=== PATIENT | female | born 1945 | race Caucasian/White ===

== ENCOUNTER 2019-03-16 14:45 | Outpatient (CLI) | payer MEDICARE | END 2019-03-16 23:59 | disposition home or self-care (01) | LOC: RAD 14:45 | PROVIDERS: ATTEND Family Medicine | DX: R49.0 Dysphonia (principal) | CPT/HCPCS: 71046 ==

== ENCOUNTER 2019-03-22 14:02 | Outpatient (CLI) | payer MEDICARE | END 2019-03-22 23:59 | disposition home or self-care (01) | LOC: CFH 14:02 | PROVIDERS: ATTEND Family Medicine | DX: N64.4 Mastodynia (principal) | CPT/HCPCS: 76642; 77066; G0279 ==

== ENCOUNTER 2019-06-23 18:58 | Outpatient (CLI) | payer MEDICARE | END 2019-06-23 23:59 | disposition home or self-care (01) | LOC: RAD 18:58 | PROVIDERS: ATTEND Family Medicine | DX: R05 Cough (principal) | CPT/HCPCS: 71046 ==

== ENCOUNTER 2020-02-12 13:53 | Inpatient (IN) | payer MEDICARE ==
[~2020-02-12] VITALS: Ht 162.6 cm; Wt 81.3 kg
[2020-02-12 14:59] LABS: BASOPHILS # (AUTO) 0.01 x10^3/uL (0-0.1); BASOPHILS % (AUTO) 0 % (0-1); EOSINOPHILS % (AUTO) 0 % (1-7); LYMPHOCYTES # (AUTO) 0.64 x10^3/uL (1-3.4); LYMPHOCYTES % (AUTO) 12 % (22-44); MD NO; MEAN CORPUSCULAR HEMOGLOBIN 31.1 pg (27.0-34.8); MEAN CORPUSCULAR HGB CONC 33.6 g/dL (32.4-35.8); MEAN PLATELET VOLUME 9.6 fL (7.4-10.4); MONOCYTES # (AUTO) 0.63 x10^3/uL (0.2-0.8); MONOCYTES % (AUTO) 12 % (2-9); NEUTROPHILS # (AUTO) 4.16 x10^3/uL (1.8-6.8); NEUTROPHILS % (AUTO) 76 % (42-75); PLATELET COUNT 161 x10^3/uL (130-400); RED BLOOD COUNT 4.52 x10^6/uL (3.82-5.3); RED CELL DISTRIBUTION WIDTH 13.6 % (9.6-15.2)
[2020-02-12 15:10] LABS: ALANINE AMINOTRANSFERASE 33 U/L (12-78); ALBUMIN 3.1 g/dL (3.4-5.0); ANION GAP 7 mmol/L (5-15); CALCIUM 8.1 mg/dL (8.5-10.1); CHLORIDE 102 mmol/L (98-107); CREATININE 0.79 mg/dL (0.55-1.02)
[2020-02-12 15:16] LABS: ALKALINE PHOSPHATASE 80 U/L (45-117); BILIRUBIN,TOTAL 1.3 mg/dL (0.2-1.0); TOTAL PROTEIN 7.1 g/dL (6.4-8.2)
[2020-02-12] MEDS ORDERED: ACETAMINOPHEN 325 MG TABLET PO ONE (15:30)
[2020-02-12] MEDS ORDERED: PLEASE ENTER HEIGHT AND WEIGHT MC SCH (15:30)
[2020-02-12 16:36] LABS: D-DIMER (DIC) 1.87 ug/mlFEU (0.00-0.52); PROTIME 11.3 Seconds (9.6-11.5)
[2020-02-12] MEDS ORDERED: CEFTRIAXONE PMX 1GM/50ML 50 ML IVPB ONE (19:00)
[2020-02-12] MEDS ORDERED: AZITHROMYCIN 500 MG in SODIUM CHLORIDE 0.9% 250 ML IVPB ONE (19:00)
[2020-02-12] MEDS ORDERED: CEFTRIAXONE PMX 1GM/50ML 50 ML ONE (19:00)
[2020-02-12] MEDS ORDERED: SODIUM CHLORIDE FLUSH 10ML SYR IVF PRN (19:00)
[2020-02-12] MEDS ORDERED: ACETAMINOPHEN 325 MG TABLET ONE (19:26)
[2020-02-12] MEDS ORDERED: KETOROLAC 30 MG/1 ML IV PRN (19:30)
[2020-02-12] MEDS ORDERED: GUAIFENESIN/DM 200-20MG, 10ML UDC PO PRN (19:30)
[2020-02-12] MEDS ORDERED: HYDROcodone/APAP 5/325 TABLET PO PRN (19:30)
[2020-02-12] MEDS ORDERED: ASA/APAP/ CAFFEINE TABLET PO PRN (19:30)
[2020-02-12] MEDS ORDERED: DOCUSATE 100 MG CAPSULE PO PRN (19:30)
[2020-02-12] MEDS ORDERED: METHOCARBAMOL 500 MG TABLET PO PRN (19:30)
[2020-02-12] MEDS ORDERED: hydrALAzine 20 MG/ML, 1ML IVPush PRN (19:30)
[2020-02-12] MEDS: BENZONATATE 100 MG CAPSULE PO SCH (21:00)
[2020-02-12] MEDS ORDERED: FAMOTIDINE 20 MG TABLET PO SCH (21:00)
[2020-02-12] MEDS: FAMOTIDINE 20 MG/2 ML IVPush SCH (21:00)
[2020-02-12] MEDS: SODIUM CHLORIDE 0.9% 1,000 ML IV SCH (21:28)
--- NOTE | 2020-02-12 22:02 | NUR ---
report from JERE florence
[2020-02-12] MEDS ORDERED: ENOXAPARIN 40 MG/0.4 ML ONE (22:36)
--- NOTE | 2020-02-12 23:00 | NUR ---
PT PROVIDED DIMITRI BROTH AND JUICE PER HER REQUEST
[2020-02-12] MEDS: ENOXAPARIN 40 MG/0.4 ML SQ SCH (23:22)
[2020-02-12] MEDS ORDERED: OMNIPAQUE 350 MG/ML, 100ML BOTTLE ONE (23:28)
--- NOTE | 2020-02-12 23:30 | NUR ---
NC O2 REDUCED TO 2L AND SATS READING 97-98% ON 2L
--- NOTE | 2020-02-13 00:55 | NUR ---
PT AMBULATROY TO BATHROOM WITH STEADY GAIT FOR BM AND URINATION
--- NOTE | 2020-02-13 00:56 | NUR ---
PT RESTING ON HOSPITAL BED. DENIES PAIN AND STATES NO NEEDS AT THIS TIME.
--- NOTE | 2020-02-13 04:34 | NUR ---
PT PROVIDED ICE CHIPS PER PT REQUEST.
[2020-02-13 05:32] LABS: BASOPHILS # (AUTO) 0.02 x10^3/uL (0-0.1); BASOPHILS % (AUTO) 0 % (0-1); EOSINOPHILS % (AUTO) 0 % (1-7); LYMPHOCYTES # (AUTO) 1.23 x10^3/uL (1-3.4); LYMPHOCYTES % (AUTO) 22 % (22-44); MD NO; MEAN CORPUSCULAR HEMOGLOBIN 31.2 pg (27.0-34.8); MEAN PLATELET VOLUME 9.9 fL (7.4-10.4); MONOCYTES # (AUTO) 0.68 x10^3/uL (0.2-0.8); MONOCYTES % (AUTO) 12 % (2-9); NEUTROPHILS # (AUTO) 3.56 x10^3/uL (1.8-6.8); NEUTROPHILS % (AUTO) 65 % (42-75); PLATELET COUNT 139 x10^3/uL (130-400); RED BLOOD COUNT 4.52 x10^6/uL (3.82-5.3); RED CELL DISTRIBUTION WIDTH 13.6 % (9.6-15.2)
[2020-02-13 05:45] LABS: CHLORIDE 106 mmol/L (98-107)
[2020-02-13 05:51] LABS: ALANINE AMINOTRANSFERASE 34 U/L (12-78); ALBUMIN 2.8 g/dL (3.4-5.0); ALKALINE PHOSPHATASE 75 U/L (45-117); ANION GAP 5 mmol/L (5-15); BILIRUBIN,TOTAL 0.9 mg/dL (0.2-1.0); CREATININE 0.67 mg/dL (0.55-1.02); TOTAL PROTEIN 6.6 g/dL (6.4-8.2)
--- NOTE | 2020-02-13 06:45 | NUR ---
PT RESTING ON HOSPTIAL BED. RESPIRATIONS EVEN AND UNLABORED. EYES CLOSED.
--- NOTE | 2020-02-13 07:28 | NUR ---
PT OOB VOIDED W/O DIFFICULTY AT BEDSIDE COMMODE. TO ROOM SINK AND WASHED FACE AND HANDS. RTD TO BED W/O DIFFICULTY. SP02 DOWN TO 84% ON RA. NC 2L PLACED WITH EFFECT, SP02 96%. PROVIDED PT WITH CLEAN PAIR OF UNDERWEAR. ALL MONITORS IN PLACE AND CALL LIGHT W/I REACH. FLUIDS AT BEDSIDE. BREAKFAST ORDERED. NAD NOTED. PT C/O RIGHT KNEE PAIN 10/10 2/2 RECENT RIGHT KNEE MINISCUS REPAIR IN JANUARY.
[2020-02-13 08:21] LABS: MICROSCOPIC INDICATED
[2020-02-13] MEDS ORDERED: ASCORBIC ACID 500 MG TABLET PO SCH (09:00)
[2020-02-13] MEDS ORDERED: BENZONATATE 100 MG CAPSULE ONE ×2 (09:02→15:53)
[2020-02-13] MEDS ORDERED: FAMOTIDINE 20 MG/2 ML ONE (09:03)
[2020-02-13] MEDS: MULTIVITAMIN 1 TABLET PO SCH (09:45)
[2020-02-13] MEDS: BENZONATATE 100 MG CAPSULE PO SCH ×3 (09:45→20:33)
[2020-02-13] MEDS: ZINC SULFATE 220 MG CAPSULE PO SCH (09:45)
[2020-02-13] MEDS: SODIUM CHLORIDE 0.9% 1,000 ML IV SCH ×2 (09:46→15:14)
[2020-02-13] MEDS: FAMOTIDINE 20 MG/2 ML IVPush SCH ×3 (09:46→20:32)
--- NOTE | 2020-02-13 09:51 | NUR ---
[facility] [phone]
[2020-02-13] MEDS: CHOLECALCIFEROL 1,000 UNIT TABLET PO SCH (10:06)
--- NOTE | 2020-02-13 10:08 | NUR ---
BRI RPT TO JERE OCAMPO. PT AWARE THAT HER DAUGHTER HAS CALLED AND WOULDLIKE HER TO CALL HER. PT HAS HER CELL PHONE W/I REACH
[2020-02-13] MEDS ORDERED: FAMOTIDINE 10 MG TAB ONE (10:36)
[2020-02-13] MEDS ORDERED: ACETAMINOPHEN 325 MG TABLET ONE (11:36)
[2020-02-13] MEDS ORDERED: ONDANSETRON 2MG/ML, 2ML ONE (11:47)
[2020-02-13] MEDS: ONDANSETRON 2MG/ML, 2ML IVPush PRN (11:54)
[2020-02-13] MEDS: ACETAMINOPHEN 325 MG TABLET PO PRN ×2 (11:55→20:32)
--- NOTE | 2020-02-13 11:58 | NUR ---
nauseated/confused-=medicated per emar. will continue to monitor closely
--- NOTE | 2020-02-13 13:06 | NUR ---
Up to commode-diarrhea Remains febrile, and slightly less confused Otherwise VSS no blankets, ice chips provided
--- NOTE | 2020-02-13 13:16 | NUR ---
spoke to provider- he would like to defer fmotrin admin, to add blood cultures
[2020-02-13] MEDS ORDERED: CEFTRIAXONE PMX 1GM/50ML 50 ML ONE (14:22)
[2020-02-13] MEDS: CEFTRIAXONE PMX 1GM/50ML 50 ML IV SCH (14:42)
--- NOTE | 2020-02-13 14:42 | NUR ---
With reassessment: Patient looks quite a bit better. Eating lunnch now oriened and pleaseant Repeat temp 99.9 Medicated per emaalex w/ joel douglas to follow
[2020-02-13] MEDS: AZITHROMYCIN 500 MG in SODIUM CHLORIDE 0.9% 250 ML IV SCH (14:46)
[2020-02-13] MEDS ORDERED: GUAIFENESIN 200 MG TABLET ONE (15:47)
[2020-02-13] MEDS: ASCORBIC ACID 500 MG TABLET PO SCH ×2 (15:55→20:32)
[2020-02-13] MEDS ORDERED: ASCORBIC ACID 250 MG TAB PO SCH (16:00)
--- NOTE | 2020-02-13 16:01 | NUR ---
Report received from JERE Cisneros.
--- NOTE | 2020-02-13 16:04 | NUR ---
bedside report to shannon juan
--- NOTE | 2020-02-13 17:09 | NUR ---
Pt states feeling the best that she has felt in the last two days. States being thankful for our ED staff.
--- NOTE | 2020-02-13 17:16 | NUR ---
Call to give report to ICU, waiting for call back
--- NOTE | 2020-02-13 18:04 | NUR ---
Report provided to JERE Kincaid ICU. Waiting for transport to Room 12.
[2020-02-13 18:53] VITALS: BP 145/65
[2020-02-13 19:59] VITALS: BP 175/78
[2020-02-13] MEDS: ENOXAPARIN 40 MG/0.4 ML SQ SCH (20:33)
[2020-02-13] MEDS ORDERED: FAMOTIDINE 20 MG TABLET PO SCH (21:00)
[2020-02-13 22:47] VITALS: BP 130/83
[2020-02-14] MEDS: SODIUM CHLORIDE 0.9% 1,000 ML IV SCH ×3 (01:35→21:14)
[2020-02-14 01:38] VITALS: BP 148/73
[2020-02-14 05:41] LABS: BASOPHILS # (AUTO) 0.03 x10^3/uL (0-0.1); BASOPHILS % (AUTO) 0 % (0-1); EOSINOPHILS % (AUTO) 0 % (1-7); LYMPHOCYTES % (AUTO) 10 % (22-44); MD NO; MEAN CORPUSCULAR HEMOGLOBIN 30.7 pg (27.0-34.8); MEAN CORPUSCULAR HGB CONC 32.5 g/dL (32.4-35.8); MEAN PLATELET VOLUME 9.8 fL (7.4-10.4); MONOCYTES # (AUTO) 0.67 x10^3/uL (0.2-0.8); MONOCYTES % (AUTO) 7 % (2-9); NEUTROPHILS # (AUTO) 7.49 x10^3/uL (1.8-6.8); NEUTROPHILS % (AUTO) 83 % (42-75); PLATELET COUNT 169 x10^3/uL (130-400); RED BLOOD COUNT 4.27 x10^6/uL (3.82-5.3); RED CELL DISTRIBUTION WIDTH 13.9 % (9.6-15.2)
[2020-02-14 05:50] LABS: ANION GAP 7 mmol/L (5-15); CALCIUM 8.2 mg/dL (8.5-10.1); CHLORIDE 108 mmol/L (98-107); CREATININE 0.71 mg/dL (0.55-1.02)
[2020-02-14] MEDS: ACETAMINOPHEN 325 MG TABLET PO PRN ×2 (06:25→18:00)
[2020-02-14 08:00] VITALS: BP 136/81
[2020-02-14] MEDS: MULTIVITAMIN 1 TABLET PO SCH (08:47)
[2020-02-14] MEDS: BENZONATATE 100 MG CAPSULE PO SCH ×3 (08:47→21:10)
[2020-02-14] MEDS: CHOLECALCIFEROL 1,000 UNIT TABLET PO SCH (08:47)
[2020-02-14] MEDS: ASCORBIC ACID 500 MG TABLET PO SCH ×3 (08:48→21:09)
[2020-02-14] MEDS: POTASSIUM CHLORIDE 20 MEQ TAB.ER.PRT PO SCH ×2 (08:48→18:00)
[2020-02-14] MEDS: ZINC SULFATE 220 MG CAPSULE PO SCH (08:51)
[2020-02-14] MEDS ORDERED: FAMOTIDINE 20 MG/2 ML IVPush PRN (11:30)
[2020-02-14 13:59] VITALS: BP 141/81
[2020-02-14] MEDS: CEFTRIAXONE PMX 1GM/50ML 50 ML IV SCH (14:21)
[2020-02-14] MEDS: AZITHROMYCIN 500 MG in SODIUM CHLORIDE 0.9% 250 ML IV SCH (15:09)
[2020-02-14 20:00] VITALS: BP 127/71
[2020-02-14] MEDS: FAMOTIDINE 10 MG TAB PO SCH (21:09)
[2020-02-14] MEDS: ENOXAPARIN 40 MG/0.4 ML SQ SCH (21:09)
[2020-02-15 02:00] VITALS: BP 146/78
[2020-02-15 07:36] LABS: BASOPHILS # (AUTO) 0.06 x10^3/uL (0-0.1); BASOPHILS % (AUTO) 1 % (0-1); EOSINOPHILS % (AUTO) 0 % (1-7); LYMPHOCYTES # (AUTO) 0.77 x10^3/uL (1-3.4); LYMPHOCYTES % (AUTO) 8 % (22-44); MD NO; MEAN CORPUSCULAR HEMOGLOBIN 30.2 pg (27.0-34.8); MEAN CORPUSCULAR HGB CONC 31.9 g/dL (32.4-35.8); MEAN PLATELET VOLUME 9.7 fL (7.4-10.4); MONOCYTES # (AUTO) 0.65 x10^3/uL (0.2-0.8); MONOCYTES % (AUTO) 6 % (2-9); NEUTROPHILS # (AUTO) 8.85 x10^3/uL (1.8-6.8); NEUTROPHILS % (AUTO) 86 % (42-75); PLATELET COUNT 195 x10^3/uL (130-400); RED BLOOD COUNT 4.61 x10^6/uL (3.82-5.3); RED CELL DISTRIBUTION WIDTH 13.9 % (9.6-15.2)
[2020-02-15 07:49] LABS: ANION GAP 6 mmol/L (5-15); CALCIUM 8.6 mg/dL (8.5-10.1); CHLORIDE 108 mmol/L (98-107); CREATININE 0.64 mg/dL (0.55-1.02)
[2020-02-15 08:02] VITALS: BP 157/77
[2020-02-15] MEDS: CHOLECALCIFEROL 1,000 UNIT TABLET PO SCH (08:07)
[2020-02-15] MEDS: ASCORBIC ACID 500 MG TABLET PO SCH ×3 (08:07→21:03)
[2020-02-15] MEDS: MULTIVITAMIN 1 TABLET PO SCH (08:07)
[2020-02-15] MEDS: DEXAMETHASONE 4 MG/ML, 1ML IVPush SCH (08:07)
[2020-02-15] MEDS: BENZONATATE 100 MG CAPSULE PO SCH ×3 (08:07→21:02)
[2020-02-15] MEDS: ZINC SULFATE 220 MG CAPSULE PO SCH (08:07)
[2020-02-15] MEDS: ENOXAPARIN 80 MG/0.8 ML SQ SCH ×2 (08:08→21:03)
[2020-02-15] MEDS: FUROSEMIDE 40 MG/4 ML IV SCH ×2 (10:38→16:49)
[2020-02-15] MEDS: LOPERAMIDE 2 MG CAPSULE PO PRN (11:38)
[2020-02-15] MEDS: CEFTRIAXONE PMX 1GM/50ML 50 ML IV SCH (13:58)
[2020-02-15 14:06] VITALS: BP 148/77
[2020-02-15] MEDS: AZITHROMYCIN 500 MG in SODIUM CHLORIDE 0.9% 250 ML IV SCH (15:02)
[2020-02-15] MEDS: POTASSIUM CHLORIDE 20 MEQ TAB.ER.PRT PO SCH (16:48)
[2020-02-15 20:00] VITALS: BP 147/78
[2020-02-15] MEDS: FAMOTIDINE 10 MG TAB PO SCH (21:03)
[2020-02-16 02:00] VITALS: BP 162/89
[2020-02-16 06:16] LABS: ANION GAP 8 mmol/L (5-15); CALCIUM 9.5 mg/dL (8.5-10.1); CHLORIDE 104 mmol/L (98-107); CREATININE 0.75 mg/dL (0.55-1.02)
[2020-02-16 06:18] LABS: BASOPHILS # (AUTO) 0.03 x10^3/uL (0-0.1); BASOPHILS % (AUTO) 0 % (0-1); EOSINOPHILS % (AUTO) 0 % (1-7); LYMPHOCYTES # (AUTO) 0.87 x10^3/uL (1-3.4); LYMPHOCYTES % (AUTO) 10 % (22-44); MD NO; MEAN CORPUSCULAR HEMOGLOBIN 33.3 pg (27.0-34.8); MEAN CORPUSCULAR HGB CONC 35.2 g/dL (32.4-35.8); MEAN PLATELET VOLUME 10.6 fL (7.4-10.4); MONOCYTES # (AUTO) 0.47 x10^3/uL (0.2-0.8); MONOCYTES % (AUTO) 6 % (2-9); NEUTROPHILS # (AUTO) 6.96 x10^3/uL (1.8-6.8); NEUTROPHILS % (AUTO) 84 % (42-75); PLATELET COUNT 264 x10^3/uL (130-400); RED BLOOD COUNT 4.25 x10^6/uL (3.82-5.3); RED CELL DISTRIBUTION WIDTH 13.9 % (9.6-15.2)
[2020-02-16 08:01] VITALS: BP 149/79
[2020-02-16] MEDS: DEXAMETHASONE 4 MG/ML, 1ML IVPush SCH (08:05)
[2020-02-16] MEDS: FUROSEMIDE 40 MG/4 ML IV SCH ×2 (08:08→16:45)
[2020-02-16] MEDS: MULTIVITAMIN 1 TABLET PO SCH (08:12)
[2020-02-16] MEDS: ASCORBIC ACID 500 MG TABLET PO SCH ×3 (08:12→20:31)
[2020-02-16] MEDS: POTASSIUM CHLORIDE 20 MEQ TAB.ER.PRT PO SCH ×2 (08:12→16:44)
[2020-02-16] MEDS: ZINC SULFATE 220 MG CAPSULE PO SCH (08:12)
[2020-02-16] MEDS: BENZONATATE 100 MG CAPSULE PO SCH ×3 (08:12→20:31)
[2020-02-16] MEDS: CHOLECALCIFEROL 1,000 UNIT TABLET PO SCH (08:13)
[2020-02-16] MEDS: ENOXAPARIN 80 MG/0.8 ML SQ SCH ×2 (08:13→20:31)
[2020-02-16] MEDS: LOPERAMIDE 2 MG CAPSULE PO PRN ×2 (10:52→15:02)
[2020-02-16] MEDS: CEFTRIAXONE PMX 1GM/50ML 50 ML IV SCH (13:56)
[2020-02-16 14:47] VITALS: BP_SYST 109; BP_SYST 118; BP_DIAS 66; BP_DIAS 72
[2020-02-16] MEDS: AZITHROMYCIN 500 MG in SODIUM CHLORIDE 0.9% 250 ML IV SCH (14:58)
[2020-02-16] MEDS ORDERED: FUROSEMIDE 20 MG/2 ML ONE (16:41)
[2020-02-16 19:45] VITALS: BP 128/70
[2020-02-16] MEDS ORDERED: FAMOTIDINE 40 MG TABLET ONE (20:19)
[2020-02-16] MEDS: FAMOTIDINE 40 MG TABLET PO SCH (20:31)
[2020-02-17 00:53] VITALS: BP 147/76
[2020-02-17] MEDS: CHOLECALCIFEROL 1,000 UNIT TABLET PO SCH (08:57)
[2020-02-17] MEDS: ASCORBIC ACID 500 MG TABLET PO SCH ×3 (08:57→19:57)
[2020-02-17] MEDS: BENZONATATE 100 MG CAPSULE PO SCH ×3 (08:57→19:57)
[2020-02-17] MEDS: ENOXAPARIN 80 MG/0.8 ML SQ SCH ×2 (08:57→19:57)
[2020-02-17] MEDS: POTASSIUM CHLORIDE 20 MEQ TAB.ER.PRT PO SCH ×2 (08:57→18:02)
[2020-02-17] MEDS: MULTIVITAMIN 1 TABLET PO SCH (08:57)
[2020-02-17] MEDS: ZINC SULFATE 220 MG CAPSULE PO SCH (08:57)
[2020-02-17] MEDS: FUROSEMIDE 40 MG/4 ML IV SCH ×2 (08:57→18:02)
[2020-02-17] MEDS: DEXAMETHASONE 4 MG/ML, 1ML IVPush SCH (08:58)
[2020-02-17 09:00] LABS: MEAN CORPUSCULAR HEMOGLOBIN 30.4 pg (27.0-34.8); MEAN CORPUSCULAR HGB CONC 32.7 g/dL (32.4-35.8); MEAN PLATELET VOLUME 10.1 fL (7.4-10.4); PLATELET COUNT 301 x10^3/uL (130-400); RED BLOOD COUNT 4.53 x10^6/uL (3.82-5.3); RED CELL DISTRIBUTION WIDTH 13.6 % (9.6-15.2)
[2020-02-17 09:15] LABS: BASOPHILS # (AUTO) 0.12 x10^3/uL (0-0.1); BASOPHILS % (AUTO) 1 % (0-1); EOSINOPHILS # (AUTO) 0.04 x10^3/uL (0-0.4); EOSINOPHILS % (AUTO) 0 % (1-7); LYMPHOCYTES # (AUTO) 0.75 x10^3/uL (1-3.4); LYMPHOCYTES % (AUTO) 7 % (22-44); MD SCAN; MONOCYTES # (AUTO) 0.94 x10^3/uL (0.2-0.8); MONOCYTES % (AUTO) 9 % (2-9); NEUTROPHILS % (AUTO) 82 % (42-75)
[2020-02-17 10:22] LABS: ALANINE AMINOTRANSFERASE 40 U/L (12-78); ALBUMIN 2.8 g/dL (3.4-5.0); ANION GAP 8 mmol/L (5-15); CALCIUM 8.9 mg/dL (8.5-10.1); CHLORIDE 102 mmol/L (98-107)
[2020-02-17 10:24] LABS: ALKALINE PHOSPHATASE 82 U/L (45-117); BILIRUBIN,TOTAL 0.7 mg/dL (0.2-1.0); CREATININE 0.82 mg/dL (0.55-1.02)
[2020-02-17 11:08] VITALS: BP 122/69
[2020-02-17 15:31] VITALS: BP 120/64
[2020-02-17 19:54] VITALS: BP 128/71
[2020-02-17] MEDS: FAMOTIDINE 40 MG TABLET PO SCH (19:57)
[2020-02-18 00:37] VITALS: BP 131/80
[2020-02-18 06:30] LABS: BASOPHILS # (AUTO) 0.12 x10^3/uL (0-0.1); BASOPHILS % (AUTO) 1 % (0-1); EOSINOPHILS % (AUTO) 0 % (1-7); LYMPHOCYTES # (AUTO) 0.67 x10^3/uL (1-3.4); LYMPHOCYTES % (AUTO) 6 % (22-44); MD NO; MEAN CORPUSCULAR HEMOGLOBIN 31.1 pg (27.0-34.8); MEAN CORPUSCULAR HGB CONC 33.2 g/dL (32.4-35.8); MEAN PLATELET VOLUME 10.7 fL (7.4-10.4); MONOCYTES # (AUTO) 1.22 x10^3/uL (0.2-0.8); MONOCYTES % (AUTO) 11 % (2-9); NEUTROPHILS # (AUTO) 9.05 x10^3/uL (1.8-6.8); NEUTROPHILS % (AUTO) 82 % (42-75); PLATELET COUNT 307 x10^3/uL (130-400); RED BLOOD COUNT 4.42 x10^6/uL (3.82-5.3); RED CELL DISTRIBUTION WIDTH 13.7 % (9.6-15.2)
[2020-02-18 06:42] LABS: HCT (SEDRATE) 40.6 % (34.6-47.8)
[2020-02-18 06:44] LABS: CHLORIDE 102 mmol/L (98-107)
[2020-02-18 06:56] LABS: ALANINE AMINOTRANSFERASE 64 U/L (12-78); ALBUMIN 2.8 g/dL (3.4-5.0); ALKALINE PHOSPHATASE 94 U/L (45-117); ANION GAP 6 mmol/L (5-15); BILIRUBIN,TOTAL 0.5 mg/dL (0.2-1.0); CALCIUM 9.3 mg/dL (8.5-10.1); CREATININE 0.86 mg/dL (0.55-1.02); TOTAL PROTEIN 6.8 g/dL (6.4-8.2)
[2020-02-18 07:57] VITALS: BP 147/72
[2020-02-18] MEDS: CHOLECALCIFEROL 1,000 UNIT TABLET PO SCH (09:00)
[2020-02-18] MEDS: POTASSIUM CHLORIDE 20 MEQ TAB.ER.PRT PO SCH ×2 (09:29→16:02)
[2020-02-18] MEDS: FUROSEMIDE 40 MG/4 ML IV SCH ×2 (09:29→16:02)
[2020-02-18] MEDS: DEXAMETHASONE 4 MG/ML, 1ML IVPush SCH (09:30)
[2020-02-18] MEDS: ENOXAPARIN 80 MG/0.8 ML SQ SCH ×2 (09:30→21:16)
[2020-02-18] MEDS: ZINC SULFATE 220 MG CAPSULE PO SCH (09:31)
[2020-02-18] MEDS: BENZONATATE 100 MG CAPSULE PO SCH ×3 (09:31→21:16)
[2020-02-18] MEDS: MULTIVITAMIN 1 TABLET PO SCH (09:31)
[2020-02-18 12:31] VITALS: BP 128/77
[2020-02-18 19:01] VITALS: BP 117/62
[2020-02-18] MEDS: ASCORBIC ACID 500 MG TABLET PO SCH (21:16)
[2020-02-18] MEDS: THIAMINE 100MG TABLET PO SCH (21:17)
[2020-02-18] MEDS: FAMOTIDINE 40 MG TABLET PO SCH (21:18)
[2020-02-18] MEDS: MELATONIN 3 MG TABLET PO PRN (22:57)
[2020-02-19 01:19] VITALS: BP 152/87
[2020-02-19 07:29] LABS: ALANINE AMINOTRANSFERASE 120 U/L (12-78); ALBUMIN 2.9 g/dL (3.4-5.0); ANION GAP 6 mmol/L (5-15); CALCIUM 9.3 mg/dL (8.5-10.1); CHLORIDE 103 mmol/L (98-107); CREATININE 0.84 mg/dL (0.55-1.02)
[2020-02-19 07:30] LABS: MEAN CORPUSCULAR HEMOGLOBIN 31.6 pg (27.0-34.8); MEAN CORPUSCULAR HGB CONC 33.2 g/dL (32.4-35.8); MEAN PLATELET VOLUME 9.9 fL (7.4-10.4); PLATELET COUNT 325 x10^3/uL (130-400); RED BLOOD COUNT 4.49 x10^6/uL (3.82-5.3)
[2020-02-19 07:36] LABS: ALKALINE PHOSPHATASE 106 U/L (45-117); BILIRUBIN,TOTAL 0.6 mg/dL (0.2-1.0); TOTAL PROTEIN 6.8 g/dL (6.4-8.2)
[2020-02-19 07:53] VITALS: BP 126/76
[2020-02-19] MEDS: FUROSEMIDE 40 MG/4 ML IV SCH ×2 (08:10→16:37)
[2020-02-19] MEDS: POTASSIUM CHLORIDE 20 MEQ TAB.ER.PRT PO SCH (08:11)
[2020-02-19 08:28] LABS: BASOPHILS # (AUTO) 0.07 x10^3/uL (0-0.1); BASOPHILS % (AUTO) 1 % (0-1); EOSINOPHILS % (AUTO) 0 % (1-7); LYMPHOCYTES # (AUTO) 1.02 x10^3/uL (1-3.4); LYMPHOCYTES % (AUTO) 9 % (22-44); MD SCAN; MONOCYTES # (AUTO) 1.08 x10^3/uL (0.2-0.8); MONOCYTES % (AUTO) 10 % (2-9); NEUTROPHILS # (AUTO) 8.92 x10^3/uL (1.8-6.8); NEUTROPHILS % (AUTO) 80 % (42-75)
[2020-02-19] MEDS: ASCORBIC ACID 500 MG TABLET PO SCH ×2 (09:02→20:47)
[2020-02-19] MEDS: ENOXAPARIN 80 MG/0.8 ML SQ SCH ×2 (09:02→20:47)
[2020-02-19] MEDS: ZINC SULFATE 220 MG CAPSULE PO SCH (09:02)
[2020-02-19] MEDS: THIAMINE 100MG TABLET PO SCH ×2 (09:02→20:47)
[2020-02-19] MEDS: CHOLECALCIFEROL 1,000 UNIT TABLET PO SCH (09:02)
[2020-02-19] MEDS: BENZONATATE 100 MG CAPSULE PO SCH ×3 (09:02→20:47)
[2020-02-19] MEDS: MULTIVITAMIN 1 TABLET PO SCH (09:02)
[2020-02-19] MEDS: DEXAMETHASONE 4 MG/ML, 1ML IVPush SCH (09:02)
[2020-02-19 09:06] LABS: HCT (SEDRATE) 42.7 % (34.6-47.8)
[2020-02-19 12:30] VITALS: BP 118/73
[2020-02-19] MEDS ORDERED: REMDESIVIR 200 MG in SODIUM CHLORIDE 0.9% 250 ML IVPB SCH (14:00)
[2020-02-19] MEDS: REMDESIVIR 200 MG in SODIUM CHLORIDE 0.9% 250 ML IVPB SCH ×2 (16:11→16:18)
[2020-02-19] MEDS: POTASSIUM CHLORIDE 20 MEQ PACKET PO SCH (16:37)
[2020-02-19 18:26] VITALS: BP 132/72
[2020-02-19] MEDS: FAMOTIDINE 40 MG TABLET PO SCH (20:47)
[2020-02-19] MEDS: MELATONIN 3 MG TABLET PO PRN (22:57)
[2020-02-20 01:10] VITALS: BP 128/80
[2020-02-20 06:02] LABS: ALANINE AMINOTRANSFERASE 140 U/L (12-78); ANION GAP 6 mmol/L (5-15); CALCIUM 8.8 mg/dL (8.5-10.1); CHLORIDE 101 mmol/L (98-107); CREATININE 0.89 mg/dL (0.55-1.02)
[2020-02-20 06:13] LABS: ALKALINE PHOSPHATASE 103 U/L (45-117); BILIRUBIN,TOTAL 0.7 mg/dL (0.2-1.0); TOTAL PROTEIN 7.3 g/dL (6.4-8.2)
[2020-02-20 06:43] LABS: MEAN CORPUSCULAR HEMOGLOBIN 30.7 pg (27.0-34.8); MEAN CORPUSCULAR HGB CONC 32.5 g/dL (32.4-35.8); PLATELET COUNT 329 x10^3/uL (130-400); RED BLOOD COUNT 4.72 x10^6/uL (3.82-5.3); RED CELL DISTRIBUTION WIDTH 13.8 % (9.6-15.2)
[2020-02-20 06:45] LABS: BASOPHILS # (AUTO) 0.06 x10^3/uL (0-0.1); BASOPHILS % (AUTO) 0 % (0-1); EOSINOPHILS % (AUTO) 0 % (1-7); LYMPHOCYTES # (AUTO) 1.15 x10^3/uL (1-3.4); LYMPHOCYTES % (AUTO) 8 % (22-44); MD SCAN; MONOCYTES # (AUTO) 0.91 x10^3/uL (0.2-0.8); MONOCYTES % (AUTO) 7 % (2-9); NEUTROPHILS # (AUTO) 11.92 x10^3/uL (1.8-6.8); NEUTROPHILS % (AUTO) 85 % (42-75)
[2020-02-20 07:07] LABS: HCT (SEDRATE) 44.6 % (34.6-47.8)
[2020-02-20] MEDS: ENOXAPARIN 80 MG/0.8 ML SQ SCH ×2 (08:00→20:00)
[2020-02-20] MEDS: DEXAMETHASONE 4 MG/ML, 1ML IVPush SCH (08:27)
[2020-02-20] MEDS: CHOLECALCIFEROL 1,000 UNIT TABLET PO SCH (08:27)
[2020-02-20] MEDS: FUROSEMIDE 40 MG/4 ML IV SCH ×2 (08:27→16:22)
[2020-02-20] MEDS: ASCORBIC ACID 500 MG TABLET PO SCH ×2 (08:28→21:00)
[2020-02-20] MEDS: BENZONATATE 100 MG CAPSULE PO SCH ×3 (08:28→21:00)
[2020-02-20] MEDS: ZINC SULFATE 220 MG CAPSULE PO SCH (08:28)
[2020-02-20] MEDS: MULTIVITAMIN 1 TABLET PO SCH (08:28)
[2020-02-20] MEDS: POTASSIUM CHLORIDE 20 MEQ PACKET PO SCH ×2 (08:29→16:22)
[2020-02-20] MEDS ORDERED: ENOXAPARIN 40 MG/0.4 ML ONE (08:32)
[2020-02-20] MEDS: THIAMINE 100MG TABLET PO SCH ×2 (08:34→21:00)
[2020-02-20 08:43] VITALS: BP 123/68
[2020-02-20 12:00] VITALS: BP 114/65
[2020-02-20] MEDS ORDERED: REMDESIVIR 100 MG in SODIUM CHLORIDE 0.9% 250 ML IVPB SCH (14:00)
[2020-02-20 20:17] VITALS: BP 117/70
[2020-02-20] MEDS ORDERED: LORazepam 2 MG/ML, 1ML IVPush ONE (20:30)
[2020-02-20] MEDS ORDERED: LORazepam 2 MG/ML, 1ML ONE (20:31)
[2020-02-20] MEDS: FAMOTIDINE 40 MG TABLET PO SCH (21:00)
[2020-02-21 01:21] VITALS: BP 136/80
[2020-02-21 06:35] LABS: MEAN CORPUSCULAR HEMOGLOBIN 30.1 pg (27.0-34.8); MEAN PLATELET VOLUME 9.7 fL (7.4-10.4); PLATELET COUNT 374 x10^3/uL (130-400); RED BLOOD COUNT 4.93 x10^6/uL (3.82-5.3); RED CELL DISTRIBUTION WIDTH 14.1 % (9.6-15.2)
[2020-02-21 06:46] LABS: CHLORIDE 100 mmol/L (98-107)
[2020-02-21 07:10] LABS: ALANINE AMINOTRANSFERASE 129 U/L (12-78); ALBUMIN 3.1 g/dL (3.4-5.0); ALKALINE PHOSPHATASE 102 U/L (45-117); ANION GAP 6 mmol/L (5-15); BILIRUBIN,TOTAL 0.8 mg/dL (0.2-1.0); CALCIUM 9.1 mg/dL (8.5-10.1); CREATININE 0.98 mg/dL (0.55-1.02); TOTAL PROTEIN 7.5 g/dL (6.4-8.2)
[2020-02-21 07:23] LABS: HCT (SEDRATE) 46.5 % (34.6-47.8); MD YES
[2020-02-21 07:27] VITALS: BP 119/77
[2020-02-21 07:27] LABS: BAND#(MANUAL) 0.16 x10^3/uL; BANDS%(MANUAL) 1 % (0-7); LYMPH#(MANUAL) 2.04 x10^3/uL (1-3.4); LYMPHS% (MANUAL) 13 % (22-44); METAMYELOCYTES# (MANUAL) 0.31 x10^3/uL (0-0); METAMYELOCYTES% (MANUAL) 2 % (0-1); MONOS#(MANUAL) 1.88 x10^3/uL (0.3-2.7); MONOS% (MANUAL) 12 % (2-9); SEGS% (MANUAL) 72 % (42-75)
[2020-02-21 07:28] LABS: <PLATELET ESTIMATE> ADEQUATE; <PLT MORPHOLOGY> NORMAL PLT MORPH; <RBC MORPHOLOGY> NORMAL
[2020-02-21] MEDS ORDERED: LORazepam 2 MG/ML, 1ML IVPush PRN (08:30)
[2020-02-21] MEDS: FUROSEMIDE 40 MG/4 ML IV SCH (09:41)
[2020-02-21] MEDS: MULTIVITAMIN 1 TABLET PO SCH (09:41)
[2020-02-21] MEDS: ENOXAPARIN 80 MG/0.8 ML SQ SCH ×2 (09:41→21:02)
[2020-02-21] MEDS: DEXAMETHASONE 4 MG/ML, 1ML IVPush SCH (09:41)
[2020-02-21] MEDS: ASCORBIC ACID 500 MG TABLET PO SCH ×2 (09:42→21:02)
[2020-02-21] MEDS: POTASSIUM CHLORIDE 20 MEQ PACKET PO SCH (09:42)
[2020-02-21] MEDS: BENZONATATE 100 MG CAPSULE PO SCH ×3 (09:42→21:02)
[2020-02-21] MEDS: CHOLECALCIFEROL 1,000 UNIT TABLET PO SCH (09:42)
[2020-02-21] MEDS: ZINC SULFATE 220 MG CAPSULE PO SCH (09:42)
[2020-02-21] MEDS: THIAMINE 100MG TABLET PO SCH ×2 (09:42→21:02)
[2020-02-21 12:22] VITALS: BP 120/69
[2020-02-21 20:18] VITALS: BP 176/89
[2020-02-21] MEDS: FAMOTIDINE 40 MG TABLET PO SCH (21:02)
[2020-02-21] MEDS: MELATONIN 3 MG TABLET PO PRN (23:31)
[2020-02-21 23:34] VITALS: BP 147/70
[2020-02-22 02:21] VITALS: BP 154/71
[2020-02-22 05:49] LABS: MEAN CORPUSCULAR HEMOGLOBIN 30.2 pg (27.0-34.8); MEAN CORPUSCULAR HGB CONC 32.2 g/dL (32.4-35.8); MEAN PLATELET VOLUME 9.4 fL (7.4-10.4); PLATELET COUNT 343 x10^3/uL (130-400); RED BLOOD COUNT 4.79 x10^6/uL (3.82-5.3); RED CELL DISTRIBUTION WIDTH 13.6 % (9.6-15.2)
[2020-02-22 06:12] LABS: CHLORIDE 98 mmol/L (98-107)
[2020-02-22 06:18] LABS: MD YES
[2020-02-22 06:21] LABS: <PLATELET ESTIMATE> ADEQUATE; <PLT MORPHOLOGY> NORMAL PLT MORPH; <RBC MORPHOLOGY> NORMAL; BAND#(MANUAL) 0.34 x10^3/uL; BANDS%(MANUAL) 2 % (0-7); LYMPH#(MANUAL) 1.35 x10^3/uL (1-3.4); LYMPHS% (MANUAL) 8 % (22-44); METAMYELOCYTES# (MANUAL) 0.34 x10^3/uL (0-0); METAMYELOCYTES% (MANUAL) 2 % (0-1); MONOS#(MANUAL) 0.85 x10^3/uL (0.3-2.7); MONOS% (MANUAL) 5 % (2-9); MYELOCYTES# (MANUAL) 0.17 x10^3/uL (0-0); MYELOCYTES% (MANUAL) 1 % (0-0); SEG#(MANUAL) 13.86 x10^3/uL (1.8-6.8); SEGS% (MANUAL) 82 % (42-75)
[2020-02-22 06:34] LABS: ALANINE AMINOTRANSFERASE 121 U/L (12-78); ALKALINE PHOSPHATASE 100 U/L (45-117); ANION GAP 7 mmol/L (5-15); BILIRUBIN,TOTAL 0.8 mg/dL (0.2-1.0); C-REACTIVE PROTEIN, QUANT 0.92 mg/dL (0.02-0.49); CALCIUM 8.9 mg/dL (8.5-10.1); CREATININE 0.94 mg/dL (0.55-1.02); TOTAL PROTEIN 7.2 g/dL (6.4-8.2)
[2020-02-22] MEDS: ENOXAPARIN 80 MG/0.8 ML SQ SCH ×2 (09:49→20:03)
[2020-02-22] MEDS: DEXAMETHASONE 4 MG/ML, 1ML IVPush SCH (09:49)
[2020-02-22] MEDS: ASCORBIC ACID 500 MG TABLET PO SCH ×2 (09:49→20:02)
[2020-02-22] MEDS: MULTIVITAMIN 1 TABLET PO SCH (09:49)
[2020-02-22] MEDS: CHOLECALCIFEROL 1,000 UNIT TABLET PO SCH (09:49)
[2020-02-22] MEDS: ZINC SULFATE 220 MG CAPSULE PO SCH (09:49)
[2020-02-22] MEDS: BENZONATATE 100 MG CAPSULE PO SCH ×3 (09:49→20:03)
[2020-02-22 09:55] VITALS: BP 147/79
[2020-02-22] MEDS: THIAMINE 100MG TABLET PO SCH ×2 (12:17→20:02)
[2020-02-22 15:15] VITALS: BP 126/75
[2020-02-22 19:59] VITALS: BP 121/68
[2020-02-22] MEDS: FAMOTIDINE 40 MG TABLET PO SCH (20:02)
[2020-02-22] MEDS: MELATONIN 3 MG TABLET PO PRN (22:06)
[2020-02-22] MEDS: NAPROXEN 250 MG TABLET PO PRN (22:06)
[2020-02-22] MEDS: TEMAZEPAM 15 MG CAPSULE PO PRN (22:06)
[2020-02-23 00:23] VITALS: BP 137/73
[2020-02-23 06:24] LABS: MEAN CORPUSCULAR HEMOGLOBIN 30.9 pg (27.0-34.8); MEAN CORPUSCULAR HGB CONC 32.8 g/dL (32.4-35.8); MEAN PLATELET VOLUME 9.5 fL (7.4-10.4); PLATELET COUNT 332 x10^3/uL (130-400); RED BLOOD COUNT 4.54 x10^6/uL (3.82-5.3); RED CELL DISTRIBUTION WIDTH 13.7 % (9.6-15.2)
[2020-02-23 06:28] LABS: CHLORIDE 99 mmol/L (98-107)
[2020-02-23 06:30] LABS: HCT (SEDRATE) 42.2 % (34.6-47.8)
[2020-02-23 06:44] LABS: ALANINE AMINOTRANSFERASE 100 U/L (12-78); ALBUMIN 2.8 g/dL (3.4-5.0); ALKALINE PHOSPHATASE 88 U/L (45-117); ANION GAP 7 mmol/L (5-15); BILIRUBIN,TOTAL 0.8 mg/dL (0.2-1.0); C-REACTIVE PROTEIN, QUANT 0.59 mg/dL (0.02-0.49); CALCIUM 8.6 mg/dL (8.5-10.1); CREATININE 0.98 mg/dL (0.55-1.02); TOTAL PROTEIN 6.6 g/dL (6.4-8.2)
[2020-02-23 06:54] LABS: MD YES
[2020-02-23 06:55] LABS: <PLATELET ESTIMATE> ADEQUATE; <PLT MORPHOLOGY> NORMAL PLT MORPH; <RBC MORPHOLOGY> NORMAL; BAND#(MANUAL) 0.53 x10^3/uL; BANDS%(MANUAL) 3 % (0-7); LYMPH#(MANUAL) 1.42 x10^3/uL (1-3.4); LYMPHS% (MANUAL) 8 % (22-44); MONOS#(MANUAL) 1.78 x10^3/uL (0.3-2.7); MONOS% (MANUAL) 10 % (2-9); MYELOCYTES# (MANUAL) 0.36 x10^3/uL (0-0); MYELOCYTES% (MANUAL) 2 % (0-0); SEG#(MANUAL) 13.71 x10^3/uL (1.8-6.8); SEGS% (MANUAL) 77 % (42-75)
[2020-02-23 08:43] VITALS: BP 143/81
[2020-02-23] MEDS: ENOXAPARIN 80 MG/0.8 ML SQ SCH ×2 (10:40→20:17)
[2020-02-23] MEDS: ZINC SULFATE 220 MG CAPSULE PO SCH (10:40)
[2020-02-23] MEDS: ASCORBIC ACID 500 MG TABLET PO SCH ×2 (10:40→21:50)
[2020-02-23] MEDS: CHOLECALCIFEROL 1,000 UNIT TABLET PO SCH (10:41)
[2020-02-23] MEDS: DEXAMETHASONE 4 MG/ML, 1ML IVPush SCH (10:42)
[2020-02-23] MEDS: THIAMINE 100MG TABLET PO SCH ×2 (10:42→21:51)
[2020-02-23] MEDS: MULTIVITAMIN 1 TABLET PO SCH (10:50)
[2020-02-23] MEDS: BENZONATATE 100 MG CAPSULE PO SCH ×3 (10:50→21:50)
[2020-02-23] MEDS ORDERED: BUDESONIDE 0.5 MG/2 ML INHA INH SCH (11:00)
[2020-02-23 12:45] VITALS: BP 156/73
[2020-02-23 19:33] VITALS: BP 134/79
[2020-02-23] MEDS: FLUTICASONE/VILANTEROL 200-25MCG/INH INH SCH (21:50)
[2020-02-23] MEDS: MELATONIN 3 MG TABLET PO PRN (21:50)
[2020-02-23] MEDS: TEMAZEPAM 15 MG CAPSULE PO PRN (21:50)
[2020-02-23] MEDS: NAPROXEN 250 MG TABLET PO PRN (21:51)
[2020-02-23] MEDS: FAMOTIDINE 40 MG TABLET PO SCH (21:51)
[2020-02-24 00:49] VITALS: BP 129/78
[2020-02-24] MEDS: ONDANSETRON 2MG/ML, 2ML IVPush PRN (05:50)
[2020-02-24 06:16] LABS: MEAN CORPUSCULAR HEMOGLOBIN 30.2 pg (27.0-34.8); MEAN CORPUSCULAR HGB CONC 31.7 g/dL (32.4-35.8); PLATELET COUNT 322 x10^3/uL (130-400); RED CELL DISTRIBUTION WIDTH 13.7 % (9.6-15.2)
[2020-02-24 06:26] LABS: ANION GAP 4 mmol/L (5-15); CALCIUM 8.6 mg/dL (8.5-10.1); CHLORIDE 101 mmol/L (98-107)
[2020-02-24 06:30] LABS: CREATININE 0.72 mg/dL (0.55-1.02)
[2020-02-24 06:49] LABS: MD YES
[2020-02-24 06:51] LABS: BAND#(MANUAL) 0.37 x10^3/uL; BANDS%(MANUAL) 2 % (0-7); LYMPH#(MANUAL) 2.21 x10^3/uL (1-3.4); LYMPHS% (MANUAL) 12 % (22-44); METAMYELOCYTES# (MANUAL) 0.18 x10^3/uL (0-0); METAMYELOCYTES% (MANUAL) 1 % (0-1); MONOS#(MANUAL) 0.55 x10^3/uL (0.3-2.7); MONOS% (MANUAL) 3 % (2-9); SEG#(MANUAL) 15.09 x10^3/uL (1.8-6.8); SEGS% (MANUAL) 82 % (42-75)
[2020-02-24 06:52] LABS: <PLATELET ESTIMATE> ADEQUATE; <PLT MORPHOLOGY> NORMAL PLT MORPH; <RBC MORPHOLOGY> NORMAL
[2020-02-24 07:46] VITALS: BP 118/68
[2020-02-24] MEDS ORDERED: FLUTICASONE FUROATE 100MCG/INH INH SCH (09:00)
[2020-02-24] MEDS: FLUTICASONE/VILANTEROL 200-25MCG/INH INH SCH (09:55)
[2020-02-24] MEDS: ZINC SULFATE 220 MG CAPSULE PO SCH (09:56)
[2020-02-24] MEDS: BENZONATATE 100 MG CAPSULE PO SCH ×3 (09:56→20:39)
[2020-02-24] MEDS: ENOXAPARIN 80 MG/0.8 ML SQ SCH ×2 (09:56→20:43)
[2020-02-24] MEDS: THIAMINE 100MG TABLET PO SCH ×2 (09:56→20:39)
[2020-02-24] MEDS: DEXAMETHASONE 4 MG/ML, 1ML IVPush SCH (09:56)
[2020-02-24] MEDS: CHOLECALCIFEROL 1,000 UNIT TABLET PO SCH (09:57)
[2020-02-24] MEDS: ASCORBIC ACID 500 MG TABLET PO SCH ×2 (09:57→20:39)
[2020-02-24 12:31] VITALS: BP 133/71
[2020-02-24 13:17] VITALS: BP 144/75
[2020-02-24] MEDS: MULTIVITAMIN 1 TABLET PO SCH (16:26)
[2020-02-24 19:36] VITALS: BP 146/57
[2020-02-24] MEDS: MELATONIN 3 MG TABLET PO PRN (20:39)
[2020-02-24] MEDS: FAMOTIDINE 40 MG TABLET PO SCH (20:39)
[2020-02-24] MEDS: NAPROXEN 250 MG TABLET PO PRN (20:39)
[2020-02-24] MEDS: TEMAZEPAM 15 MG CAPSULE PO PRN (20:39)
[2020-02-25 01:13] VITALS: BP 124/64
[2020-02-25 05:49] LABS: MEAN CORPUSCULAR HEMOGLOBIN 30.1 pg (27.0-34.8); MEAN CORPUSCULAR HGB CONC 31.9 g/dL (32.4-35.8); MEAN PLATELET VOLUME 9.1 fL (7.4-10.4); PLATELET COUNT 302 x10^3/uL (130-400); RED BLOOD COUNT 4.35 x10^6/uL (3.82-5.3); RED CELL DISTRIBUTION WIDTH 13.7 % (9.6-15.2)
[2020-02-25 05:57] LABS: CHLORIDE 103 mmol/L (98-107)
[2020-02-25 06:06] LABS: ALANINE AMINOTRANSFERASE 97 U/L (12-78); ALBUMIN 2.8 g/dL (3.4-5.0); ALKALINE PHOSPHATASE 77 U/L (45-117); ANION GAP 7 mmol/L (5-15); BILIRUBIN,TOTAL 0.5 mg/dL (0.2-1.0); CALCIUM 8.6 mg/dL (8.5-10.1); CREATININE 0.67 mg/dL (0.55-1.02); TOTAL PROTEIN 6.1 g/dL (6.4-8.2)
[2020-02-25 06:49] LABS: MD YES
[2020-02-25 06:51] LABS: <PLATELET ESTIMATE> ADEQUATE; <PLT MORPHOLOGY> NORMAL PLT MORPH; <RBC MORPHOLOGY> NORMAL; LYMPH#(MANUAL) 1.19 x10^3/uL (1-3.4); LYMPHS% (MANUAL) 6 % (22-44); MONOS#(MANUAL) 0.59 x10^3/uL (0.3-2.7); MONOS% (MANUAL) 3 % (2-9); MYELOCYTES% (MANUAL) 1 % (0-0); REACTIVE LYMPHS % (MANUAL) 1 % (0-0); SEG#(MANUAL) 17.62 x10^3/uL (1.8-6.8); SEGS% (MANUAL) 89 % (42-75)
[2020-02-25] MEDS: ENOXAPARIN 80 MG/0.8 ML SQ SCH ×2 (08:12→20:20)
[2020-02-25] MEDS: ASCORBIC ACID 500 MG TABLET PO SCH ×2 (08:12→20:21)
[2020-02-25] MEDS: DEXAMETHASONE 4 MG/ML, 1ML IVPush SCH (08:12)
[2020-02-25] MEDS: BENZONATATE 100 MG CAPSULE PO SCH ×3 (08:13→20:21)
[2020-02-25] MEDS: MULTIVITAMIN 1 TABLET PO SCH (08:13)
[2020-02-25] MEDS: FLUTICASONE/VILANTEROL 200-25MCG/INH INH SCH (08:13)
[2020-02-25] MEDS: ZINC SULFATE 220 MG CAPSULE PO SCH (08:13)
[2020-02-25] MEDS: CHOLECALCIFEROL 1,000 UNIT TABLET PO SCH (08:13)
[2020-02-25] MEDS: THIAMINE 100MG TABLET PO SCH ×2 (08:13→20:21)
[2020-02-25 08:25] VITALS: BP 144/76
[2020-02-25 13:50] VITALS: BP 131/63
[2020-02-25 19:15] VITALS: BP 157/68
[2020-02-25] MEDS: FAMOTIDINE 20 MG TABLET PO SCH (20:21)
[2020-02-25] MEDS: MELATONIN 3 MG TABLET PO PRN (20:21)
[2020-02-25] MEDS: TEMAZEPAM 15 MG CAPSULE PO PRN (20:21)
[2020-02-26 00:21] VITALS: BP 135/68
[2020-02-26 06:49] VITALS: BP 131/65
[2020-02-26] MEDS: MULTIVITAMIN 1 TABLET PO SCH (08:54)
[2020-02-26] MEDS: FAMOTIDINE 20 MG TABLET PO SCH ×2 (08:54→20:21)
[2020-02-26] MEDS: ASCORBIC ACID 500 MG TABLET PO SCH ×2 (08:54→20:20)
[2020-02-26] MEDS: BENZONATATE 100 MG CAPSULE PO SCH ×3 (08:54→20:20)
[2020-02-26] MEDS: ZINC SULFATE 220 MG CAPSULE PO SCH (08:55)
[2020-02-26] MEDS: DEXAMETHASONE 4 MG/ML, 1ML IVPush SCH (08:55)
[2020-02-26] MEDS: CHOLECALCIFEROL 1,000 UNIT TABLET PO SCH (08:55)
[2020-02-26] MEDS: ENOXAPARIN 80 MG/0.8 ML SQ SCH ×2 (08:55→20:20)
[2020-02-26] MEDS: THIAMINE 100MG TABLET PO SCH ×2 (08:55→20:20)
[2020-02-26] MEDS: FLUTICASONE/VILANTEROL 200-25MCG/INH INH SCH (08:55)
[2020-02-26 12:08] VITALS: BP 136/67
[2020-02-26 19:25] VITALS: BP 153/72
[2020-02-26] MEDS: MELATONIN 3 MG TABLET PO PRN (20:24)
[2020-02-26] MEDS: TEMAZEPAM 15 MG CAPSULE PO PRN (20:24)
[2020-02-27 01:24] VITALS: BP 156/78
[2020-02-27 08:22] VITALS: BP 154/76
[2020-02-27] MEDS: ENOXAPARIN 80 MG/0.8 ML SQ SCH (09:07)
[2020-02-27] MEDS: FLUTICASONE/VILANTEROL 200-25MCG/INH INH SCH (09:07)
[2020-02-27] MEDS: THIAMINE 100MG TABLET PO SCH (09:08)
[2020-02-27] MEDS: MULTIVITAMIN 1 TABLET PO SCH (09:08)
[2020-02-27] MEDS: BENZONATATE 100 MG CAPSULE PO SCH (09:08)
[2020-02-27] MEDS: FAMOTIDINE 20 MG TABLET PO SCH (09:08)
[2020-02-27] MEDS: ZINC SULFATE 220 MG CAPSULE PO SCH (09:08)
[2020-02-27] MEDS: DEXAMETHASONE 4 MG/ML, 1ML IVPush SCH (09:08)
[2020-02-27] MEDS: CHOLECALCIFEROL 1,000 UNIT TABLET PO SCH (09:08)
[2020-02-27] MEDS: ASCORBIC ACID 500 MG TABLET PO SCH (09:32)
[2020-02-27] MEDS ORDERED: CHOL10003 PO (10:12)
[2020-02-27] MEDS ORDERED: ASCO500T9 PO (10:12)
[2020-02-27] MEDS ORDERED: MELA3TAB31 PO (10:12)
[2020-02-27] MEDS ORDERED: MULT-449 PO (10:12)
[2020-02-27] MEDS ORDERED: ZINC220C7 PO (10:12)
[2020-02-27] MEDS ORDERED: FLUT1BLS INH (10:12)
[2020-02-27] MEDS ORDERED: THIA100T67 PO (10:12)
[2020-02-27 12:55] VITALS: BP 162/75
== END 2020-02-27 14:17 | DRG 177 ==
LOC: ED 15:07 → EDIP 18:55 → ICU 02-13 18:04 → 4NW 02-16 06:32 → 4NE 02-22 12:59 → 4NW 02-22 12:59
PROVIDERS: ADMIT Internal Medicine; ATTEND Family Medicine
DX: U07.1 COVID-19 (principal); J12.89 Other viral pneumonia; J96.01 Acute respiratory failure with hypoxia; J15.9 Unspecified bacterial pneumonia; E44.0 Moderate protein-calorie malnutrition; E87.1 Hypo-osmolality and hyponatremia; J81.1 Chronic pulmonary edema; J98.11 Atelectasis; A08.39 Other viral enteritis; I10 Essential (primary) hypertension; E80.6 Other disorders of bilirubin metabolism; E88.09 Other disorders of plasma-protein metabolism, not elsewhere classified; Z82.49 Family history of ischemic heart disease and other diseases of the circulatory system; Z83.3 Family history of diabetes mellitus; Z90.49 Acquired absence of other specified parts of digestive tract
CPT/HCPCS: 36415; 36600; 71045; 71275; 80048; 80053; 80069; 81001; 82728; 82803; 83605; 83615; 83735; 84145; 85025; 85049; 85379; 85384; 85610; 85651; 85730; 86140; 87040; 87081; 87635; 93005; 96374; 96375; 99285; G0378; J0456; J0696; J1100; J1650; J1940; J2405; Q9967; J0360; J2060; J3490; J7030; J7050

== ENCOUNTER 2020-04-04 11:53 | Emergency (ER) | payer MEDICARE ==
[~2020-04-04] VITALS: Ht 162.6 cm; Wt 74.6 kg
[~2020-04-04 11:53] MED LIST: ASCO500T9 PO; CHOL10003 PO; FLUT1BLS INH; MELA3TAB31 PO; MULT-449 PO; THIA100T67 PO; ZINC220C7 PO
--- NOTE | 2020-04-04 12:00 | NUR ---
BIB EMS FOR CO INTERMITTENT BILAT FOOT PAIN/REDNESS X TODAY. TWO EPISODES TODAY, FIRST WOKE HER UP FROM SLEEP AT APPROX 0100 THIS AM. PT REPORTS "IT FELT LIKE IT WAS BURNING AND THROBBING. WHEN I TURNED THE LIGHT ON THEY WERE RED", SENSATION/PAIN RELIEVED WITH ELEVATING EXTREMITIES OR W MOVEMENT. UPON ARRIVAL BLE PINK AND WARM WITH GOOD CAP REFILL. NO EDEMA NOTED. STRONG, REGULAR AND EQUAL DP PULSES. EQUAL STRENGTH AND SENSATION. PT RECENTLY ADMITTED TO [facility] FOR TX FOR COVID, TESTED NEGATIVE PRIOR TO DC. DENIES S/S AT THIS TIME. NO EVIDENCE OF DVT NOTED ON EXAM.
[2020-04-04 12:56] LABS: BASOPHILS # (AUTO) 0.06 x10^3/uL (0-0.1); BASOPHILS % (AUTO) 1 % (0-1); EOSINOPHILS # (AUTO) 0.09 x10^3/uL (0-0.4); EOSINOPHILS % (AUTO) 2 % (1-7); LYMPHOCYTES # (AUTO) 1.69 x10^3/uL (1-3.4); LYMPHOCYTES % (AUTO) 28 % (22-44); MD NO; MEAN CORPUSCULAR HEMOGLOBIN 30.3 pg (27.0-34.8); MEAN CORPUSCULAR HGB CONC 32.3 g/dL (32.4-35.8); MEAN CORPUSCULAR VOLUME 93.9 fL (80-100); MEAN PLATELET VOLUME 8.1 fL (7.4-10.4); MONOCYTES # (AUTO) 0.63 x10^3/uL (0.2-0.8); MONOCYTES % (AUTO) 11 % (2-9); NEUTROPHILS # (AUTO) 3.56 x10^3/uL (1.8-6.8); NEUTROPHILS % (AUTO) 59 % (42-75); PLATELET COUNT 256 x10^3/uL (130-400); RED BLOOD COUNT 4.53 x10^6/uL (3.82-5.3); RED CELL DISTRIBUTION WIDTH 15.1 % (9.6-15.2)
--- NOTE | 2020-04-04 12:59 | NUR ---
ERP AT BEDSIDE. PT ANXIOUS. DENIES S/S AT THIS TIME
[2020-04-04 13:07] LABS: ALANINE AMINOTRANSFERASE 21 U/L (12-78); ALBUMIN 3.3 g/dL (3.4-5.0); ANION GAP 6 mmol/L (5-15); CALCIUM 9.2 mg/dL (8.5-10.1); CHLORIDE 109 mmol/L (98-107); CREATININE 0.75 mg/dL (0.55-1.02)
[2020-04-04 13:09] LABS: ALKALINE PHOSPHATASE 115 U/L (45-117); BILIRUBIN,TOTAL 0.9 mg/dL (0.2-1.0); TOTAL PROTEIN 7.1 g/dL (6.4-8.2)
--- NOTE | 2020-04-04 14:18 | NUR ---
PT AMBULATED STEADILY TO BATHROOM
[2020-04-04] MEDS ORDERED: APIXABAN 5 MG TABLET PO ONE (15:00)
[2020-04-04] MEDS ORDERED: APIXABAN 5 MG TABLET ONE (15:10)
[2020-04-04 15:13] VITALS: BP 145/59
--- NOTE | 2020-04-04 15:13 | NUR ---
PT MEDICATED PER EMAR
--- NOTE | 2020-04-04 15:23 | NUR ---
POC IS DC. PT OFF MONITORING AND ASKED TO DRESS.
--- NOTE | 2020-04-04 15:38 | NUR ---
DC EDUCATION PROVIDED, PT DEMONSTRATES UNDERSTANDING. PT AMBULATED STEADILY TO WHEELCHAIR AND ASSISTED TO DC. DAUGHTER TO TRANSPORT PT HOME.
== END 2020-04-04 15:40 | disposition home or self-care (01) ==
LOC: ED 12:22
DX: I82.431 Acute embolism and thrombosis of right popliteal vein (principal); I10 Essential (primary) hypertension; X58.XXXA Exposure to other specified factors, initial encounter; Y93.89 Activity, other specified; Y92.009 Unspecified place in unspecified non-institutional (private) residence as the place of occurrence of the external cause; Y99.8 Other external cause status
CPT/HCPCS: 36415; 80053; 85025; 93970; 99284

== ENCOUNTER 2020-04-23 13:39 | Emergency (ER) | payer MEDICARE ==
[~2020-04-23] VITALS: Ht 160 cm; Wt 74.7 kg
[2020-04-23 14:00] VITALS: BP 163/97
[2020-04-23 15:28] LABS: BASOPHILS # (AUTO) 0.03 x10^3/uL (0-0.1); BASOPHILS % (AUTO) 0 % (0-1); EOSINOPHILS # (AUTO) 0.27 x10^3/uL (0-0.4); EOSINOPHILS % (AUTO) 3 % (1-7); LYMPHOCYTES # (AUTO) 2.15 x10^3/uL (1-3.4); LYMPHOCYTES % (AUTO) 26 % (22-44); MD NO; MEAN CORPUSCULAR HEMOGLOBIN 30.6 pg (27.0-34.8); MEAN CORPUSCULAR HGB CONC 32.5 g/dL (32.4-35.8); MEAN CORPUSCULAR VOLUME 94.1 fL (80-100); MEAN PLATELET VOLUME 8.7 fL (7.4-10.4); MONOCYTES # (AUTO) 0.99 x10^3/uL (0.2-0.8); MONOCYTES % (AUTO) 12 % (2-9); NEUTROPHILS # (AUTO) 4.85 x10^3/uL (1.8-6.8); NEUTROPHILS % (AUTO) 59 % (42-75); PLATELET COUNT 276 x10^3/uL (130-400); RED BLOOD COUNT 4.77 x10^6/uL (3.82-5.3); RED CELL DISTRIBUTION WIDTH 15.6 % (9.6-15.2)
[2020-04-23 15:42] LABS: ALBUMIN 3.7 g/dL (3.4-5.0); ANION GAP 6 mmol/L (5-15); CALCIUM 9.7 mg/dL (8.5-10.1); CHLORIDE 107 mmol/L (98-107)
[2020-04-23 15:47] LABS: ALANINE AMINOTRANSFERASE 24 U/L (12-78); ALKALINE PHOSPHATASE 102 U/L (45-117); BILIRUBIN,TOTAL 0.8 mg/dL (0.2-1.0); CREATININE 0.77 mg/dL (0.55-1.02); TOTAL PROTEIN 7.8 g/dL (6.4-8.2)
--- NOTE | 2020-04-23 15:56 | NUR ---
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 LIBBY
--- NOTE | 2020-04-23 16:40 | NUR ---
PT C/O RASH UNDER BREASTS, PERINEUM, AND INNER ELBOWS. PT STATES SHE IS FEELING IT START ON HER FACE.
[2020-04-23] MEDS ORDERED: FLUCONAZOLE 100 MG TABLET ONE (16:43)
--- NOTE | 2020-04-23 16:55 | NUR ---
PT MEDICATED PER THE MAR
[2020-04-23] MEDS ORDERED: FLUCONAZOLE 100 MG TABLET PO ONE (17:00)
--- NOTE | 2020-04-23 17:20 | NUR ---
PT PROVIDED DISCHARGE EDUCATION. AMBULATED TO DC DESK, STEADY GAIT.
== END 2020-04-23 17:20 | disposition home or self-care (01) ==
LOC: ED 17:04
DX: B37.2 Candidiasis of skin and nail (principal); H10.023 Other mucopurulent conjunctivitis, bilateral; I10 Essential (primary) hypertension; Z86.718 Personal history of other venous thrombosis and embolism
CPT/HCPCS: 36415; 80053; 85025; 93970; 99284

== ENCOUNTER → 2020-05-09 | Outpatient (CLI) | payer MEDICARE ==
[~2020-05-09] MED LIST changes: +REGADENOSON 0.4 MG/5 ML SYRINGE ONE
== END | disposition home or self-care (01) ==
LOC: CFH 08:45
PROVIDERS: ATTEND Internal Medicine Cardiovascular Disease
DX: I35.8 Other nonrheumatic aortic valve disorders (principal); E11.9 Type 2 diabetes mellitus without complications; I51.7 Cardiomegaly; I45.10 Unspecified right bundle-branch block
CPT/HCPCS: 78452; 93017; 93306; A9502; J2785

== ENCOUNTER → 2020-05-18 | Outpatient (CLI) | payer MEDICARE ==
[~2020-05-18] MED LIST changes: -REGADENOSON 0.4 MG/5 ML SYRINGE ONE
== END | disposition home or self-care (01) ==
LOC: RAD 11:45
PROVIDERS: ATTEND Internal Medicine Cardiovascular Disease
DX: M79.662 Pain in left lower leg (principal); M79.604 Pain in right leg; I82.409 Acute embolism and thrombosis of unspecified deep veins of unspecified lower extremity; R60.9 Edema, unspecified
CPT/HCPCS: 93970

== ENCOUNTER 2020-05-24 06:22 | Day surgery (SDC) | payer MEDICARE ==
[~2020-05-24] VITALS: Ht 160 cm; Wt 73.5 kg
[2020-05-24 06:48] VITALS: BP 134/75
[2020-05-24] MEDS ORDERED: AMLO5TAB10 PO (06:56)
[2020-05-24] MEDS ORDERED: APIX5TAB PO (06:56)
[2020-05-24] MEDS ORDERED: HYDR-826 PO (06:57)
[2020-05-24 07:29] LABS: BASOPHILS % (AUTO) 1 % (0-1); EOSINOPHILS % (AUTO) 4 % (1-7); LYMPHOCYTES % (AUTO) 33 % (22-44); MEAN CORPUSCULAR HEMOGLOBIN 30.8 pg (27.0-34.8); MEAN CORPUSCULAR HGB CONC 32.9 g/dL (32.4-35.8); MEAN PLATELET VOLUME 9.1 fL (7.4-10.4); MONOCYTES % (AUTO) 13 % (2-9); NEUTROPHILS % (AUTO) 50 % (42-75); PLATELET COUNT 267 x10^3/uL (130-400); RED BLOOD COUNT 4.61 x10^6/uL (3.82-5.3); RED CELL DISTRIBUTION WIDTH 14.7 % (9.6-15.2)
[2020-05-24 07:31] LABS: MD NO
[2020-05-24 07:32] LABS: ANION GAP 6 mmol/L (5-15); CALCIUM 9.3 mg/dL (8.5-10.1); CHLORIDE 109 mmol/L (98-107)
[2020-05-24] MEDS ORDERED: MIDAZOLAM 1 MG/ML, 5ML ONE (08:07)
[2020-05-24] MEDS ORDERED: LIDOCAINE 2%, 20ML ONE (08:07)
[2020-05-24] MEDS ORDERED: FENTANYL PF 100 MCG/2ML ONE (08:07)
[2020-05-24] MEDS ORDERED: SODIUM CHLORIDE 0.9% 1,000 ML IV SCH (11:00)
== END 2020-05-24 12:21 | disposition home or self-care (01) ==
LOC: CACL 06:22
PROVIDERS: ATTEND Internal Medicine Cardiovascular Disease
DX: R94.39 Abnormal result of other cardiovascular function study (principal); I25.118 Atherosclerotic heart disease of native coronary artery with other forms of angina pectoris; I25.83 Coronary atherosclerosis due to lipid rich plaque; I10 Essential (primary) hypertension; I45.10 Unspecified right bundle-branch block; E78.5 Hyperlipidemia, unspecified; E66.3 Overweight; Z68.28 Body mass index [BMI] 28.0-28.9, adult; Z79.01 Long term (current) use of anticoagulants; Z79.899 Other long term (current) drug therapy; Z86.718 Personal history of other venous thrombosis and embolism; Z90.49 Acquired absence of other specified parts of digestive tract; Z98.890 Other specified postprocedural states; Z82.49 Family history of ischemic heart disease and other diseases of the circulatory system
CPT/HCPCS: 36415; 80048; 85025; 93458; 99156; 99157; C1760; C1769; C1894; J2250; J3010; Q9967

== ENCOUNTER 2020-10-11 17:10 | Emergency (ER) | payer MEDICARE ==
[~2020-10-11] VITALS: Ht 160 cm; Wt 79.3 kg
[~2020-10-11 17:10] MED LIST changes: +AMLO-210 PO; +APIX5TAB PO; +HYDR-826 PO
[2020-10-11 17:28] VITALS: BP 173/84
--- NOTE | 2020-10-11 18:09 | NUR ---
PROJECT MANAGEMENT INTERN: PT TO ROOM FROM CHRISSY LAUGHLIN
--- NOTE | 2020-10-11 18:20 | NUR ---
pt is a 75f who comes to the ED with a small skin tear to the left hand. The bleeding is controlled. She was reaching into her cloth bale header when she cut her hand. The ed provider has been to bedside for eval and poc. call light within reach.
== END 2020-10-11 18:47 | disposition home or self-care (01) ==
LOC: ED 18:41
DX: S61.402A Unspecified open wound of left hand, initial encounter (principal); I10 Essential (primary) hypertension; Z86.718 Personal history of other venous thrombosis and embolism; X58.XXXA Exposure to other specified factors, initial encounter; Y93.89 Activity, other specified; Y92.89 Other specified places as the place of occurrence of the external cause; Y99.8 Other external cause status
CPT/HCPCS: 99281; 99282

== ENCOUNTER 2020-11-17 19:54 | Emergency (ER) | payer MEDICARE ==
[~2020-11-17] VITALS: Ht 162.6 cm; Wt 78.0 kg
--- NOTE | 2020-11-17 20:05 | NUR ---
PT BIB [facility] FOR [facility] WHILE WALKING HER DOG. PT HAS ABRASION TO NOSE AND HANDS. VSS. PT DENIES LOC AND IS ON BLOOD THINNERS. CALL LIGHT IN REACH
[2020-11-17] MEDS ORDERED: DIPH,PERTUSS(ACELL),TET VAC/PF 0.5 ML IM-VACC ONE ×2 (20:30→20:51)
--- NOTE | 2020-11-17 20:32 | NUR ---
pt to ct
[2020-11-17] MEDS ORDERED: NEOSPORIN OINT. PKT 1 PACKET ONE (21:05)
--- NOTE | 2020-11-17 21:16 | NUR ---
PT GIVEN ICEPACK AND TETANUS VACCINE. TECH AT BEDSIDE DRESSING WOUND
--- NOTE | 2020-11-17 21:47 | NUR ---
PT WRIST SPLINTED.SS. PT VERBALIZED UNDERSTANDING OF DISCHARGE AND FOLLOW UP INSTRUCTIONS. PT GETTING DRESSED.
[2020-11-17 21:48] VITALS: BP 118/79
== END 2020-11-17 21:55 | disposition home or self-care (01) ==
LOC: ED 20:51
DX: S63.502A Unspecified sprain of left wrist, initial encounter (principal); S00.31XA Abrasion of nose, initial encounter; R51.9 Headache, unspecified; M54.2 Cervicalgia; W01.0XXA Fall on same level from slipping, tripping and stumbling without subsequent striking against object, initial encounter; Y93.89 Activity, other specified; Y92.410 Unspecified street and highway as the place of occurrence of the external cause; Y99.8 Other external cause status
CPT/HCPCS: 29125; 70450; 72125; 90471; 90715; 99285

== ENCOUNTER → 2020-12-04 | Outpatient (CLI) | payer MEDICARE | END | disposition home or self-care (01) | LOC: CFH 10:35 | PROVIDERS: ATTEND Family Medicine | DX: Z12.31 Encounter for screening mammogram for malignant neoplasm of breast (principal) | CPT/HCPCS: 77067 ==

== ENCOUNTER → 2021-01-31 | Outpatient (CLI) | payer MEDICARE | END | disposition home or self-care (01) | LOC: CFH 13:02 → EDSTATUS 15:00 | PROVIDERS: ATTEND Family Medicine | DX: R60.0 Localized edema (principal) ==